=== PATIENT | female | born 1990 | race Caucasian/White ===

== ENCOUNTER 2024-06-03 21:11 | Emergency (ER) | payer OTHER ==
--- OUTSIDE RECORDS SUMMARY | 2024-06-03 21:13 | XMS REPORT | Continuity of Care Document ---
Author Name Unknown Address [address] [place] [address] [address] [place] [address] [facility] Address [address] [place] [address] [address] [place] [address] Care Team Providers Care Qualitative Executive Researcher Name Role Phone Unavailable Unavailable Unavailable Payers Payer Name Policy Type Policy Number Effective Date Expirati on Date Source [facility] [id number] 2018 00:00:00 Allergies, Adverse Reactions, Alerts Allergy Name Allergy Type Status Severity Reaction(s) Onset Date Inactive Date Treating Clinician Comments Source LATEX, NATURAL RUBBER Drug Class Active Rash 11-19 00:00: 00 [facility] Encounters Start Date/Time End Date/Time Encounter Type Admission Type Attending Clinicians Care Facility Care Department Encounter ID Source 2021-01-14 20:18:17 Emergency [facility] [id number] [facility] 2019-12-22 08:30:00 2019-12-22 08:30:00 Outpatient R [facility] [id number] [facility]
[2024-06-03 22:03] LABS: Absolute Basophils 0.1 K/uL (0-0.5); Absolute Eosinophils 0.2 K/uL (0-0.5); Absolute Lymphocytes (CBC) 1.9 K/uL (0.7-4.9); Absolute Monocytes 0.7 K/uL (0.1-1.3); Absolute Neutrophil 8.8 K/uL (1.8-8.0); Basophils % 0.8 % (0-1.3); Eosinophils % 1.9 % (0-4.4); Hematocrit 36.4 % (36.0-45.0); Hemoglobin 12.3 g/dL (12.0-15.0); Lymphocytes % 16.2 % (15.3-44.8); MCH 32.5 pg (27.0-35.0); MCHC 33.7 g/dL (32.0-36.0); MCV 96.2 fL (80-100); MPV 8.2 fL (7.6-11.3); Monocytes % 5.7 % (3.3-12.3); Neutrophils % 75.4 % (41.7-73.7); Platelets 296 thou/uL (152-406); RBC Red Blood Cell Count 3.78 M/uL (3.86-4.86); Red Cell Distribution Width 14.3 % (12.1-15.2)
[2024-06-03] MEDS ORDERED: KETOROLAC 30 MG/ML INJ ONE (22:03)
[2024-06-03] MEDS ORDERED: NA CHLORIDE 0.9% 500 ML ONE (22:04)
[2024-06-03] MEDS ORDERED: DIPHENHYDRAMINE 50 MG/ML VIAL ONE (22:04)
[2024-06-03] MEDS ORDERED: METOCLOPRAMIDE 10 MG/2mL INJ ONE (22:04)
--- NOTE | 2024-06-03 22:23 | RAD REPORT ---
EXAMINATION: ONE VIEW CHEST XR CLINICAL INDICATION: SWELLING TECHNIQUE: Frontal chest projection is submitted. Examination is limited by patient positioning and t echnique. COMPARISON: No prior exam. FINDINGS: The lungs are well inflated and clear. The heart is upper limit of normal in size. No displaced fract ures identified. IMPRESSION: No acute intrathoracic abnormalities.
[2024-06-03 22:27] LABS: ALT/SGPT 20 U/L (13-56); AST/SGOT 19 U/L (15-37); Albumin 2.2 g/dL (3.4-5.0); Albumin/Globulin Ratio 0.5 (1.1-1.8); Alkaline Phosphatase 166 U/L (45-117); Anion Gap 9.6 mEq/L (5.0-15.0); BUN Blood Urea Nitrogen 12 mg/dL (7-18); Bicarbonate 21 mEq/L (21-32); Bilirubin Total 0.3 mg/dL (0.2-1.0); Globulin 4.1 g/dL (2.3-3.5); Glomerular Filtration Rate 130 ml/min (=/>90); Glucose Level 132 mg/dL (74-106); Potassium 3.6 mEq/L (3.5-5.1); Protein, Total 6.3 g/dL (6.4-8.2); Sodium Level 138 mEq/L (136-145); Thyroid Stimulating Hormone 0.649 uIU/mL (0.358-3.740)
[2024-06-03 22:28] LABS: Bilirubin Direct < 0.2 mg/dL (0-0.2); Bilirubin Indirect, Calculated 0.1 mg/dL (0.2-0.8); Troponin High Sensitivity < 3.0 pg/mL (<58.9)
--- NOTE | 2024-06-03 22:31 | RAD REPORT ---
EXAMINATION: US BILATERAL LOWER EXTREMITY VENOUS DOPPLER CLINICAL INDICATION: leg swelling TECHNIQUE: Complete bilateral duplex sonography of the BILATERAL lower extremity veins was performed. The examination included compression for vein patency, color Doppler imaging and flow augmentation in response to distal compression of the distal external iliac, common femoral, femoral, popliteal, t ibial, and great and small saphenous veins. COMPARISON: No prior exam. FINDINGS: Duplex sonography testing of the veins of the BILATERAL lower extremity was performed. Color flow edita ging shows all veins to be compressible with [id number] color filling. Pulsatile and phasic flow is present within all lower extremity deep and superficial veins examined. IMPRESSION: There is no deep vein or superficial vein thrombosis.
[2024-06-03 22:45] LABS: Influenza A Ag Negative; Influenza B Ag Negative; SARS-CoV-2 Antigen Rapid Res Negative (Negative)
--- NOTE | 2024-06-04 00:18 | ER ---
Nurse's Notes [facility] Name: Kenia Jovel Age: 33 yrs Sex: Female : 1990 Arrival Date: 06/03/2024 Time: 21:11 Bed 4 Private MD: Diagnosis: Acute tension headache, bilateral lower extremity swelling, hypoalbuminemia, acute nausea without vomiting Presentation: 06/03 21:38 Chief complaint: Patient states: 4 days post-, legs swollen and tight, worse vc1 headache ever. Coronavirus screen: Client denies travel out of the [place] in the last 14 days. At this time, the client does not indicate any symptoms associated with coronavirus-19. Ebola Screen: Patient negative for fever greater than or equal to 101.5 degrees Fahrenheit, and additional compatible Ebola Virus Disease symptoms Patient denies exposure to infectious person. Patient denies travel to an Ebola-affected area in the 21 days before illness onset. No symptoms or risks identified at this time. Initial Sepsis Screen: Does the patient meet any 2 criteria? No. Patient's initial sepsis screen is negative. Does the patient have a suspected source of infection? No. Patient's initial sepsis screen is negative. Risk Assessment: Do you want to hurt yourself or someone else? Patient reports no desire to harm self or others. Onset of symptoms was June 03, 2024. Care prior to arrival: None. Activity prior to arrival: None. Mechanism of Injury: No Mechanism of Injury. Transition of care: patient was not received from another setting of care. 21:38 Method Of Arrival: Ambulatory vc1 21:38 Acuity: NICKY 3 vc1 Triage Assessment: 21:43 Headache History: Denies prior headaches. General: Appears in no apparent distress. vc1 uncomfortable, obese, Behavior is calm, cooperative, appropriate for age. Pain: Complains of pain in entire head Pain does not radiate. Pain currently is 10 out of 10 on a pain scale. Quality of pain is described as pressure, Pain began suddenly, Is continuous, Also complains of bilateral leg swelling. EENT: No deficits noted. No signs and/or symptoms were reported regarding the EENT system. Neuro: Level of Consciousness is awake, alert, obeys commands, Oriented to person, place, time, situation, Appropriate for age. Cardiovascular: Capillary refill < 3 seconds Patient's skin is warm and dry. Cardiovascular: Edema is 1+ to left ankle, left foot, left toes, right ankle, right foot and right toes. Respiratory: Airway is patent Respiratory effort is even, unlabored, Respiratory pattern is regular, symmetrical. GI: Abdomen is round non-distended. : No deficits noted. No signs and/or symptoms were reported regarding the genitourinary system. Derm: Skin is intact, is healthy with good turgor, Skin is dry, Skin is normal. Musculoskeletal: Circulation, motion, and sensation intact. Range of motion: intact in all extremities. 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 - Infectious Disease History:: Denies. - Social history:: Smoking status: Patient denies any tobacco usage or history of. - Family history:: not pertinent. Screenin:43 [facility] ED Fall Risk Assessment (Adult) History of falling in the last 3 months, vc1 including since admission No falls in past 3 months (0 pts) Confusion or Disorientation No (0 pts) Intoxicated or Sedated No (0 pts) Impaired Gait No (0 pts) Mobility Assist Device Used No (0 pt) Altered Elimination No (0 pt) Score/Fall Risk Level 0 - 2 = Low Risk Oriented to surroundings, Maintained a safe environment, Educated pt \T\ family on fall prevention, incl call for assistance when getting out of bed. Abuse screen: Denies threats or abuse. Nutritional screening: No deficits noted. Tuberculosis screening: No symptoms or risk factors identified. Assessment: 22:17 General: Appears in no apparent distress. uncomfortable, Behavior is calm, cooperative. cm10 Pain: Complains of pain in head Pain currently is 10 out of 10 on a pain scale. Quality of pain is described as sharp, shooting, stabbing. Neuro: No deficits noted. Level of Consciousness is awake, alert, obeys commands, Oriented to person, place, time, situation, Appropriate for age. Neuro: Reports headache. Respiratory: No deficits noted. Airway is patent Respiratory effort is even, unlabored, Respiratory pattern is regular, symmetrical. GI: Reports nausea. Vital Signs: 21:38 BP 155 / 113; Pulse 97; Resp 18; Temp 98.1; Pulse Ox 100% ; Weight 116.57 kg; Height 5 vc1 ft. 5 in. ; Pain 10/10; 23:00 BP 128 / 88; Pulse 74; Resp 19; Pulse Ox 96% on R/A; jb4 06/04 00:54 BP 140 / 99; Pulse 88; Resp 16; Pulse Ox 98% on R/A; jb4 06/03 21:38 Body Mass Index 42.77 (116.57 kg, 165.1 cm) vc1 06/03 21:38 Pain Scale: Adult vc1 [place] Coma Score: 22:49 Eye Response: spontaneous(4). Motor Response: obeys commands(6). Verbal Response: sp4 oriented(5). Total: 15. 22:49 Eye Response: spontaneous(4). Motor Response: obeys commands(6). Verbal Response: sp4 oriented(5). Total: 15. ED Course: 06/03 21:13 Patient arrived in ED. jj6 21:25 Zeny Godfrey PA-C is PHCP. sb4 21:25 Jeffy Wills MD is Attending Physician. sb4 21:39 Jeffy Wills MD is Attending Physician. sp4 21:41 Triage completed. vc1 21:43 Arm band placed on right wrist. vc1 21:46 Patient has correct armband on for positive identification. Bed in low position. Call vc1 light in reach. 21:48 Basic Metabolic Panel Sent. cm10 21:48 CBC with Diff Sent. cm10 21:48 Troponin HS Sent. cm10 21:48 Initial lab(s) drawn, by me, sent to lab. EKG done, by ED staff, reviewed by Jeffy Wills MD. Inserted saline lock: 20 gauge in left antecubital area, using aseptic technique. Blood collected. Flushed with 10 mL NS. 22:14 XRAY Chest (1 view) In Process Unspecified. EDMS 22:25 Extrem Venous W Compression Fabián US In Process Unspecified. EDMS 06/04 00:13 Hadley Rodney, RN is Primary Nurse. jb4 00:54 Provided Education on: discharge instructions.. jb4 00:54 No provider procedures requiring assistance completed. IV discontinued, intact, jb4 bleeding controlled, No redness/swelling at site. Pressure dressing applied. Administered Medications: 06/03 22:12 Drug: Ketorolac IVP 30 mg IVP once Route: IVP; Site: left antecubital; cm10 22:12 Drug: metoCLOPramide IVP 10 mg IVP once; over 1 to 2 minutes Route: IVP; Site: left cm10 antecubital; 22:12 Drug: diphenhydrAMINE IVP 25 mg IVP once Route: IVP; Site: left antecubital; cm10 22:12 Drug: NS 0.9% IV 500 ml 500 ml IV at 1 bolus once; to be given as a bolus over 30 cm10 minutes Volume: 500 ml; Route: IV; Rate: 1 bolus; Site: left antecubital; Outcome: 06/04 00:17 Discharge ordered by . sp4 00:54 Discharged to home ambulatory, jb4 00:54 Condition: stable 00:54 Discharge instructions given to patient, Instructed on discharge instructions, follow up and referral plans. medication usage, Demonstrated understanding of instructions, follow-up care, medications, Prescriptions given X 2, 00:55 Patient left the ED. jb4 Signatures: Dispatcher [employer] EDMA Hadley Rodney, RN RN jb4 Melody Dominguez jj6 Pao Cruz RN RN vc1 Zeny Godfrey PA-C PA-C sb4 Potepalov, Sergey, MD MD sp4 Carolyn Merchant RN RN cm10 Corrections: (The following items were deleted from the chart) 06/03 21:42 21:41 PMHx: None; mian pappas
--- NOTE | 2024-06-04 00:18 | EDPHYS ---
Physician Documentation [facility] Name: Kenia Jovel Age: 33 yrs Sex: Female : 1990 Arrival Date: 06/03/2024 Time: 21:11 Bed 4 Private MD: ED Physician Jeffy Wills HPI: 06/03 21:39 This 33 yrs old Female presents to ER via Unassigned with complaints of sp4 Headache, Swelling of Lower Extremity. 06/04 22:49 33-year-old presents with bilateral lower extremity swelling. Patient reports sp4 delivering. 22:49 4 days presents with headache, bilateral lower extremity swelling. Also sp4 elevated blood pressure.. 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 - Infectious Disease History:: Denies. - Social history:: Smoking status: Patient denies any tobacco usage or history of. - Family history:: not pertinent. ROS: 06/04 22:49 Constitutional: Negative for fever, chills, and weight loss, positive headache positive sp4 bilateral lower extremity swelling, positive elevated blood pressure All other systems are negative, Exam: 22:49 Constitutional: This is a well developed, well nourished patient who is awake, alert, sp4 and in no acute distress. Head/Face: Normocephalic, atraumatic. Eyes: Pupils equal round and reactive to light, extra-ocular motions intact. Lids and lashes normal. Conjunctiva and sclera are not injected. Cornea within normal limits. Periorbital areas with no swelling, redness, or edema. ENT: Nares patent. No nasal discharge, no septal abnormalities noted. Tympanic membranes are normal and external auditory canals are clear. Oropharynx with no redness, swelling, or masses, exudates, or evidence of obstruction, uvula midline. Mucous membranes moist. Neck: Trachea midline, no thyromegaly or masses palpated, and no cervical lymphadenopathy. Supple, full range of motion without nuchal rigidity, or vertebral point tenderness. Chest/axilla: Normal chest wall appearance and motion. Nontender with no deformity. No lesions are appreciated. Cardiovascular: Regular rate and rhythm with a normal S1 and S2. No gallops, murmurs, or rubs. Normal PMI, no JVD. No pulse deficits. Bilateral mild ankle edema Respiratory: Lungs have equal breath sounds bilaterally, clear to auscultation and percussion. No rales, rhonchi or wheezes noted. No increased work of breathing, no retractions or nasal flaring. Abdomen/GI: Soft, with normal bowel sounds. No distension or tympany. No guarding or rebound. No evidence of tenderness throughout. Back: No spinal tenderness. No costovertebral tenderness. Skin: Warm, dry with normal turgor. Normal color with no rashes, no lesions, and no evidence of cellulitis. MS/ Extremity: Pulses equal, no cyanosis. Neurovascular intact. Full, normal range of motion. Neuro: Awake and alert, GCS 15, oriented to person, place, time, and situation. Cranial nerves II-XII grossly intact. Motor strength 5/5 in all extremities. Sensory grossly intact. Psych: Awake, alert, with orientation to person, place and time. Behavior, mood, and affect are within normal limits Vital Signs: 06/03 21:38 BP 155 / 113; Pulse 97; Resp 18; Temp 98.1; Pulse Ox 100% ; Weight 116.57 kg; Height 5 vc1 ft. 5 in. ; Pain 10/10; 23:00 BP 128 / 88; Pulse 74; Resp 19; Pulse Ox 96% on R/A; jb4 06/04 00:54 BP 140 / 99; Pulse 88; Resp 16; Pulse Ox 98% on R/A; jb4 06/03 21:38 Body Mass Index 42.77 (116.57 kg, 165.1 cm) vc1 06/03 21:38 Pain Scale: Adult vc1 [place] Coma Score: 22:49 Eye Response: spontaneous(4). Motor Response: obeys commands(6). Verbal Response: sp4 oriented(5). Total: 15. 22:49 Eye Response: spontaneous(4). Motor Response: obeys commands(6). Verbal Response: sp4 oriented(5). Total: 15. MDM: 06/03 21:39 Medical Screening Exam initiated sp4 06/04 22:49 Differential diagnosis: cluster headache, migraine, tension headache, vasomotor sp4 headache. Data reviewed: vital signs, nurses notes, lab test result(s). ED course: Headache relieved. Patient stable for discharge home.. 06/03 21:38 Order name: Basic Metabolic Panel; Complete Time: 00:12 vc1 06/03 21:38 Order name: CBC with Diff; Complete Time: 00:12 vc1 06/03 21:38 Order name: Troponin HS; Complete Time: 00:12 vc1 06/03 21:52 Order name: COVID-19 Ag + Flu A+B Ag; Complete Time: 00:12 sp4 06/03 22:10 Order name: Liver (Hepatic) Function; Complete Time: 00:12 EDMS 06/03 22:10 Order name: T4 Free; Complete Time: 00:12 EDMS 06/03 22:10 Order name: Thyroid Stimulating Hormone; Complete Time: 00:12 EDMS 06/03 21:38 Order name: XRAY Chest (1 view); Complete Time: 00:12 vc1 06/03 21:51 Order name: Extrem Venous W Compression Fabián US; Complete Time: 00:12 sp4 06/03 21:38 Order name: Cardiac monitoring; Complete Time: 21:48 vc1 06/03 21:38 Order name: EKG - Nurse/Tech; Complete Time: 21:48 vc1 06/03 21:38 Order name: IV Saline Lock; Complete Time: 21:48 vc1 06/03 21:38 Order name: Labs collected and sent; Complete Time: 21:48 vc1 06/03 21:38 Order name: O2 Per Protocol; Complete Time: 21:48 vc1 06/03 21:38 Order name: O2 Sat Monitoring; Complete Time: 21:48 vc1 Administered Medications: 06/03 22:12 Drug: Ketorolac IVP 30 mg IVP once Route: IVP; Site: left antecubital; cm10 22:12 Drug: metoCLOPramide IVP 10 mg IVP once; over 1 to 2 minutes Route: IVP; Site: left cm10 antecubital; 22:12 Drug: diphenhydrAMINE IVP 25 mg IVP once Route: IVP; Site: left antecubital; cm10 22:12 Drug: NS 0.9% IV 500 ml 500 ml IV at 1 bolus once; to be given as a bolus over 30 cm10 minutes Volume: 500 ml; Route: IV; Rate: 1 bolus; Site: left antecubital; Disposition: 06/04 22:52 Chart complete. sp4 Disposition Summary: 06/04/24 00:17 Discharge Ordered Notes: We recommend high protein diet Location: Home sp4 Problem: new sp4 Symptoms: have improved sp4 Condition: Stable sp4 Diagnosis - Acute tension headache, bilateral lower extremity swelling, hypoalbuminemia, acute sp4 nausea without vomiting Followup: sp4 - With: Private Physician - When: 10 - 14 days - Reason: Recheck today's complaints Discharge Instructions: - Discharge Summary Sheet sp4 - Edema, [id number]-[id number] sp4 Forms: - Patient Portal Instructions sp4 Prescriptions: - Ibuprofen 800 mg Oral Tablet - take 1 tablet ORAL route every 8 hours As needed take with food; 30 tablet; sp4 Refills: 0, Product Selection Permitted - ondansetron 8 mg Oral Tablet,disintegrating - take 1 tablet ORAL route every 8 hours PRN nausea; 30 tablet; Refills: 0, sp4 Product Selection Permitted Addendum: 06/07/2024 19:26 Addendum: EKG at 2155 06/03/2024 normal sinus rhythm rate 87, normal intervals, normal s p4 axis, no ectopy, no ST elevation or depression, no acute ischemic changes, overall normal EKG.. Signatures: Dispatcher [facility] ED[facility] Evans RN RN vc1 Jeffy Wills MD MD sp4 Carolyn Merchant RN RN cm10 Corrections: (The following items were deleted from the chart) 06/03 21:38 21:38 BASIC METABOLIC PANEL+C.LAB.BRZ ordered. EDMS EDMS 21:38 21:38 CBC+H.LAB.BRZ ordered. EDMS EDMS 21:38 21:38 Troponin High Sensitivity+C.LAB.BRZ ordered. EDMS EDMS 21:38 21:38 Chest Single View+RAD.RAD.BRZ ordered. EDMS EDMS 21:42 21:41 PMHx: None; vc1 vc1 22:10 21:51 HEPATIC FUNCTION+C.LAB.BRZ ordered. EDMS EDMS : 21:52 THYROID STIMULAT HORMONE+C.LAB.BRZ ordered. EDMS EDMS 21:52 T4 FREE+C.LAB.BRZ ordered. EDMS EDMS
[2024-06-04 09:42] VITALS: TEMP 98.1
[2024-06-04 09:44] VITALS: BP 140/99; O2SAT 98
--- NOTE | 2024-06-04 12:27 | EKG ---
Test Date: 2024-06-03 Test Time: 21:55:19 Associate Theatre Professor: LOCO MEASUREMENT RESULTS: Intervals: Rate: 87 [place]: 156 QRSD: 90 QT: 386 QTc: 464 [place]: P: 54 [place]: 156 QRS: 73 T: 50 INTERPRETIVE STATEMENTS: Normal sinus rhythm Possible Left atrial enlargement Borderline ECG No previous ECG available for comparison Electronically Signed On 06-04-24 12:25:07 CDT by Jhony Pardo
== END 2024-06-04 00:55 | disposition home or self-care (01) ==
LOC: ER 21:11
DX: G44.209 Tension-type headache, unspecified, not intractable (principal); M79.89 Other specified soft tissue disorders; E88.09 Other disorders of plasma-protein metabolism, not elsewhere classified; R11.2 Nausea with vomiting, unspecified
CPT/HCPCS: 36415; 71045; 80048; 80076; 84439; 84443; 84484; 85025; 87428; 93005; 93970; 96374; 96375; 99284; J1200; J2765; J7040